=== PATIENT | male | born 1980 | race Caucasian/White ===

== ENCOUNTER 2024-07-18 01:23 | Day surgery (SDC) | payer BC, SELFPAY ==
[2024-07-06 14:06] VITALS: BMI 27.8
[2024-07-18 10:18] VITALS: BP 137/95; PULSE 70; RESP 18; TEMP 36.1; O2SAT 100
[2024-07-18] MEDS: LACTATED RINGERS 1,000 ML 150 ML IV CONT (10:26)
--- NOTE | 2024-07-18 10:29 | P.PNAN_ITS ---
Anes - Initial Pre Proc Eval Procedure: Operation Date: 07/18/24 11:30 Proposed Procedures p Colonoscopy - Bj Davis MD Date/Time: 07/18/24 10:29 Surgeon: Bj Davis MD Pre Op Diagnosis: ulcerative colitis w/o complications Patient Data Age: 44 Gender: M Height: 1.83 m Weight: 86.6 kg Last Vital Signs Temp 36.1 C L 07/18/24 10:18 Pulse 70 07/18/24 10:18 Resp 18 07/18/24 10:18 BP 137/95 H 07/18/24 10:18 Pulse Ox 100 07/18/24 10:18 O2 Del Method Room Air 07/18/24 10:18 Allergies Allergy/AdvReac Type Severity Reaction Status Date / Time Dog Dander Allergy Intermediate SNEEZING Uncoded 07/18/24 10:17 ITCHING Cat Dander Allergy Unknown SNEEZING, Uncoded 07/18/24 10:17 ITCHING Home Medications Medication Instructions Recorded Confirmed Type azelastine 137 mcg (0.1 %) nasal 1 spray intranasal Q12H 30 days 07/01/23 07/18/24 Rx spray #30 mL ondansetron HCl 4 mg tablet 4 mg PO Q8H PRN nausea and 08/18/23 07/18/24 Rx vomiting #60 tabs sertraline 100 mg tablet See Rx Instructions .Route 12/15/23 07/18/24 Rx .COMPLEX #30 tabs mesalamine 1.2 gram tablet,delayed 4.8 g PO DAILY 1 month #120 tabs 06/24/24 07/18/24 Rx release (Lialda) Patient hx anesthesia problems: none Family hx anesthesia problems: none Results Review: All pre-operative results and documents have been reviewed as part of the pre- operative evaluation. [facility] Past Medical History Medical History Allergic rhinitis Anxiety History of nephrolithiasis Hyperlipidemia Ulcerative colitis Surgical History Surgical History History of tonsillectomy and adenoidectomy Family History Family History Father Hypertension Mother No problems noted. Grandparent Hypertension Hyperlipidemia Cerebrovascular accident Brain aneurysm Pneumonia Social History Social History Smoking packs per day: 1 Smoking cigarettes per day: 20.0 Years smoked: 20 Smoking pack-years: 20.00 Smoking status: Former smoker Tobacco type: cigarettes Smokeless tobacco user: other Additional smoking assessment comments: STOPPED SMOKING 2011--CURRENTLY USES NICTONE POUCHES Alcohol intake: never Substance use: never Substance use type: does not use Lack of Transportation: No Lack of Food: Never True Current Housing: I Have Housing Concerned About Future Housing: No Difficulty Paying Gas/Electric Bills: No Difficulty Paying for Meds: No Currently Unemployed: No Education: Trade/Vocational Certificate Difficulty w/ Childcare or Family Care: No Living arrangements: with family Occupation/Education: occupation Gender identity (if verbalized by the patient): Male Sexual Orientation (if Verbalized by the Patient): Straight or Heterosexual Spiritual care concerns: No Anes - Eval Final PreProcedure Day of Procedure 07/18/24 10:29 Patient weight: overweight Heart: regular rate and rhythm Lungs: clear to auscultation Airway: Mallampati scale class 1 Neurological: alert and oriented Last oral intake: >/= 8 hours ASA classification: II Emergent: no Anesthetic plan: proceed Anesthesia type and monitoring: general GIVS Results Review: All pre-operative results and documents have been reviewed as part of the pre- operative evaluation. Informed Consent: The patient's anesthetic plan and its attendant risks and benefits were discussed with the patient/family/POA. Questions were solicited and answers provided to the satisfaction of the patient/family/POA.
--- NOTE | 2024-07-18 10:31 | PM.HPGS ---
History of Present Illness History of Present Illness Consent: Risks, benefits, and alternatives have been discussed and questions answered. Patient agrees to proceed with procedure. Chief complaint: ulcerative colitis w/o complications Narrative: He Degroot is a 44 year old male with left sided UC diagnosed in 2017, no colonoscopy since but doing well on lialda, denies any flare up and never used biologics. Review of Systems Review of Systems: All systems reviewed & are unremarkable except as noted in HPI and below PMFSH Past Medical History Medical History (Updated 07/18/24 @ 10:33 by Bj Davis MD) Allergic rhinitis Anxiety History of nephrolithiasis Hyperlipidemia Left sided ulcerative colitis Ulcerative colitis Surgical History Surgical History History of tonsillectomy and adenoidectomy Family History Family History Father Hypertension Mother No problems noted. Grandparent Hypertension Hyperlipidemia Cerebrovascular accident Brain aneurysm Pneumonia Social History Social History Smoking packs per day: 1 Smoking cigarettes per day: 20.0 Years smoked: 20 Smoking pack-years: 20.00 Smoking status: Former smoker Tobacco type: cigarettes Smokeless tobacco user: other Additional smoking assessment comments: STOPPED SMOKING 2011--CURRENTLY USES NICTONE POUCHES Alcohol intake: never Substance use: never Substance use type: does not use Lack of Transportation: No Lack of Food: Never True Current Housing: I Have Housing Concerned About Future Housing: No Difficulty Paying Gas/Electric Bills: No Difficulty Paying for Meds: No Currently Unemployed: No Education: Trade/Vocational Certificate Difficulty w/ Childcare or Family Care: No Living arrangements: with family Occupation/Education: occupation Gender identity (if verbalized by the patient): Male Sexual Orientation (if Verbalized by the Patient): Straight or Heterosexual Spiritual care concerns: No Meds Home Medications and Allergies Home Medications Medication Instructions Recorded Confirmed Type azelastine 137 mcg (0.1 %) nasal 1 spray intranasal Q12H 30 days 07/01/23 07/18/24 Rx spray #30 mL ondansetron HCl 4 mg tablet 4 mg PO Q8H PRN nausea and 08/18/23 07/18/24 Rx vomiting #60 tabs sertraline 100 mg tablet See Rx Instructions .Route 12/15/23 07/18/24 Rx .COMPLEX #30 tabs mesalamine 1.2 gram tablet,delayed 4.8 g PO DAILY 1 month #120 tabs 06/24/24 07/18/24 Rx release (Lialda) Allergies Allergy/AdvReac Type Severity Reaction Status Date / Time Dog Dander Allergy Intermediate SNEEZING Uncoded 07/18/24 10:17 ITCHING Cat Dander Allergy Unknown SNEEZING, Uncoded 07/18/24 10:17 ITCHING Vital Signs Vital Signs - 24 hr 07/18/24 10:18 Temperature 97 F L Pulse Rate 70 Respiratory Rate 18 Blood Pressure 137/95 H Pulse Oximetry 100 Oxygen Delivery Room Air Exam Const: General: comfortable and no acute distress HENMT: Face/Nose/Sinus: Normal nares present Eyes: General: appearance normal, both eyes and all related structures Neck: Neck: no JVD Resp: Auscultation: clear to auscultation bilaterally Cardio: Rate: regular rate Rhythm: regular rhythm GI: Inspection: non-distended GI Palp: Yes Soft to palpation Skin: General skin exam: normal color Neuro: General: gait normal Speech: normal speech Extrem: General: normal to inspection Psych: Mental Status: mental status grossly normal Assessment and Plan Assessment and plan (1) Left sided ulcerative colitis: Code(s): K51.50 - Left sided colitis without complications Status: Acute Assessment and Plan: colonoscopy on remission with mesalamine
[2024-07-18 10:47] VITALS: BP 104/64; PULSE 71; RESP 19; O2SAT 96
[2024-07-18 10:57] VITALS: BP 104/68; PULSE 60; RESP 16; O2SAT 99
[2024-07-18 11:07] VITALS: BP 116/86; PULSE 61; RESP 18; O2SAT 99
== END 2024-07-18 11:10 | disposition home or self-care (01) ==
PROVIDERS: PCP Physician Assistant; Visit Provider Internal Medicine Gastroenterology
PROC: 0DJD8ZZ Inspection of Lower Intestinal Tract, Via Natural or Artificial Opening Endoscopic (ICD-10-PCS; CPT 45378; principal; 2024-07-18 11:30)
DX: K51.90 Ulcerative colitis, unspecified, without complications (principal); K64.8 Other hemorrhoids; F41.9 Anxiety disorder, unspecified; F17.290 Nicotine dependence, other tobacco product, uncomplicated
CPT/HCPCS: 45380; 88305; J2704; J7120

== ENCOUNTER 2024-08-10 16:20 | Outpatient (CLI) | payer BC, SELFPAY ==
[2024-08-10 17:46] LABS: Hematocrit 45.7 % (42.0-52.0); Mean Corpuscular HGB Conc 32.8 g/dl (32-36); Mean Corpuscular Hemoglobin 27.9 pg (26-34); Mean Corpuscular Volume 85.1 fl (80-100); Platelet Count Result 305 k/mm3 (150-375); Red Blood Count 5.37 M/mm3 (4.6-6.20); Red Cell Distribution Width 14.3 % (11.5-14.5); White Blood Count 8.3 K/mm3 (4.5-10.0)
[2024-08-10 18:38] LABS: Erythrocyte Sedimentation Rate 1 mm/hr (0-20)
[2024-08-10 20:07] LABS: Alanine Aminotransferase 41 U/L (6-50); Albumin Level 4.8 g/dL (3.5-5.1); Alkaline Phosphatase 54 U/L (38-126); Anion Gap 6 mmol/L (4-12); Aspartate Amino Transferase 35 U/L (17-59); Bilirubin,Total 0.7 mg/dL (0.2-1.3); Blood Urea Nitrogen 16 mg/dL (9-20); CRP < 0.5 mg/dL (<1.0); Calcium 9.5 mg/dL (8.4-10.2); Carbon Dioxide 29 mmol/L (22-30); Chloride 104 mmol/L (98-107); Estimated Glomerular Filt Rate > 60; Glucose 66 mg/dL (65-110); Potassium 4.2 mmol/L (3.4-5.0); Sodium 139 mmol/L (137-145)
[2024-08-10 22:33] LABS: Hepatitis B Surface Antigen Negative (Negative)
[2024-08-10 22:50] LABS: Hepatitis B Surface Anti Res Negative
[2024-08-12 07:38] LABS: Hepatitis B Core Ab Total NON-REACTIVE (NON-REACTIVE)
[2024-08-15 12:44] LABS: NIL 0.05 IU/mL; Quantiferon TB Plus, 1T NEGATIVE (NEGATIVE); TB1-NIL 0.01 IU/mL; TB2-NIL 0.01 IU/mL
== END 2024-08-10 16:21 | disposition home or self-care (01) ==
LOC: ANHLAB 16:22
PROVIDERS: PCP Family Medicine; Visit Provider Internal Medicine Gastroenterology
DX: K51.50 Left sided colitis without complications (principal)
CPT/HCPCS: 36415; 80053; 85027; 85652; 86140; 86480; 86704; 86706; 87340